=== PATIENT | female | born 1945 ===

== ENCOUNTER → 2022-10-05 08:38 | Outpatient (BNVA) | payer MEDICARE, SELFPAY | PROVIDERS: PCP Nurse Practitioner Primary Care; Referring Provider Nurse Practitioner Primary Care; Visit Provider Nurse Practitioner Adult Health | DX: G44.85 Primary stabbing headache (principal) | CPT/HCPCS: 99204 ==

== ENCOUNTER → 2023-01-11 09:11 | Outpatient (BNVA) | payer MEDICARE, SELFPAY | PROVIDERS: PCP Nurse Practitioner Primary Care; Referring Provider Nurse Practitioner Primary Care; Visit Provider Nurse Practitioner Adult Health | DX: G44.85 Primary stabbing headache (principal) | CPT/HCPCS: 99213 ==